=== PATIENT | male | born 1980 | race Caucasian/White ===

== ENCOUNTER 2018-03-31 04:53 | Emergency (ER) | payer OTHER ==
[2018-03-31] MEDS ORDERED: OLANZapine DISINTEGR 10 MG TAB PO ONE (05:19)
[2018-03-31] MEDS ORDERED: NS 1,000 ML IV ONE ×2 (05:19→07:59)
--- NOTE | 2018-03-31 05:39 | EDPHY ---
H & P Stated Complaint: altered at [employer], meth and mj use, erratic behavior Source: Patient, EMS Exam Limitations: Intoxication - Personal History Current Tetanus/Diphtheria Vaccine: Unsure Current Tetanus Diphtheria and Acellular Pertussis (TDAP): Unsure - Medical/Surgical History Hx Asthma: No Hx Chronic Respiratory Disease: No Hx Diabetes: No Hx Cardiac Disease: Yes Hx Renal Disease: No Hx Cirrhosis: No Hx Alcoholism: Yes Hx HIV/AIDS: No Hx Splenectomy or Spleen Trauma: No Other PMH: HTN, PTSD, Depression, adhd - Social History Smoking Status: Heavy smoker Time Seen by Provider: 03/31/18 05:13 HPI/ROS: HPI The patient presents with bizarre behavior, brought in by ambulance from a restaurant where he was acting strangely, tearing open sugar packets, and uncooperative with staff. The patient admits to methamphetamine use tonight. He says he 1st used about 12 hr ago and has been using it throughout the evening. He does not have any chest pain, abdominal pain, nausea, vomiting. He is feeling anxious.. REVIEW OF SYSTEMS 10 systems were reviewed and negative with the exception of the elements mentioned in the history of present illness. PMHx: PTSD, bipolar disorder per his report Soc Hx: Methamphetamine abuse, marijuana use PHYSICAL General Appearance: Alert, anxious, glancing around the room Eyes: Pupils equal and round no pallor or injection ENT, Mouth: Mucous membranes moist Respiratory: There are no retractions, lungs are clear to auscultation Cardiovascular: Tachycardic rate and regular rhythm Gastrointestinal: Abdomen is soft and non-tender, no masses, bowel sounds normal Neurological: A&O, moves all extremities Skin: Warm and dry, no rashes Musculoskeletal: Neck is supple non tender Extremities: symmetrical, full range of motion Psychiatric: Patient is oriented X 3, he is agitated, twitching (Riguzzi,Dinorah) Constitutional: Initial Vital Signs Heart Rate 121 H 03/31/18 04:56 Respiratory Rate 20 03/31/18 04:56 Blood Pressure 134/69 H 03/31/18 04:56 O2 Sat (%) 96 03/31/18 04:56 O2 Delivery Mode Room Air Allergies/Adverse Reactions: No Known Allergies Allergy (Unverified 03/31/18 04:56) Home Medications: Medication Instructions Recorded NK [No Known Home Meds] 03/31/18 Medical Decision Making Differential Diagnosis: This is a 37-year-old man who is brought in by ambulance with bizarre behavior. He apparently was at a restaurant acting strangely. He admits to methamphetamine use. Here he is tachycardic, oriented to self only, appears to be tweaking. Plan for IV fluids and Zyprexa. Patient received above treatments and required additional doses of Ativan for sedation because of his agitation. He was allowed to sleep, heart rate improved. (Dinorah Dinh) Other Provider: [address] Tejada pending improvement in the patient's mental status and decrease in the affects of the methamphetamines. 10:30 patient is awake alert. Ambulating unassisted to the bathroom. Medically clear for discharge. (David Jones) - Data Points Medications Given: Discontinued Medications Sodium Chloride (Ns) 1,000 mls @ 0 mls/hr IV EDNOW ONE; Wide Open PRN Reason: Protocol Stop: 03/31/18 05:20 Last Admin: 03/31/18 05:25 Dose: 1,000 mls Sodium Chloride (Ns) 1,000 mls @ 0 mls/hr IV EDNOW ONE; Wide Open PRN Reason: Protocol Stop: 03/31/18 08:00 Last Admin: 03/31/18 08:00 Dose: 1,000 mls Lorazepam (Ativan Injection) 1 mg IVP EDNOW ONE Stop: 03/31/18 05:49 Last Admin: 03/31/18 05:48 Dose: 1 mg Lorazepam (Ativan Injection) 1 mg IVP EDNOW ONE Stop: 03/31/18 06:02 Last Admin: 03/31/18 06:01 Dose: 1 mg Olanzapine (Zyprexa Zydis) 10 mg PO EDNOW ONE Stop: 03/31/18 05:20 Last Admin: 03/31/18 05:25 Dose: 10 mg Departure - Departure Disposition: Home, Routine, Self-Care Clinical Impression: Methamphetamine abuse, Tachycardia Altered mental status Qualifiers: Altered mental status type: unspecified Qualified Code(s): R41.82 - Altered mental status, unspecified Condition: Good Instructions: Methamphetamine (By mouth) Additional Instructions: Please avoid methamphetamine, it is causing bad problems for you. Referrals: [facility],. [Clinic] - As per Instructions
[2018-03-31] MEDS ORDERED: LORazepam 2 MG/ML INJ ONE (05:46)
[2018-03-31] MEDS ORDERED: LORazepam 2 MG/ML INJ IVP ONE ×2 (05:48→06:01)
[2018-03-31 10:37] VITALS: BP 95/60
== END 2018-03-31 10:49 | disposition home or self-care (01) ==
DX: R41.82 Altered mental status, unspecified (principal); F15.10 Other stimulant abuse, uncomplicated; R00.0 Tachycardia, unspecified
CPT/HCPCS: 96374; J2060

== ENCOUNTER 2018-04-19 04:45 | Emergency (ER) | payer MEDICAID ==
--- NOTE | 2018-04-19 05:17 | EDPHY ---
H & P Stated Complaint: SI, MANIC, PTSD, mildly combative. +ETOH - Personal History Current Tetanus/Diphtheria Vaccine: Unsure Current Tetanus Diphtheria and Acellular Pertussis (TDAP): Unsure - Medical/Surgical History Hx Asthma: No Hx Chronic Respiratory Disease: No Hx Diabetes: No Hx Cardiac Disease: Yes Hx Renal Disease: No Hx Cirrhosis: No Hx Alcoholism: Yes Hx HIV/AIDS: No Hx Splenectomy or Spleen Trauma: No Other PMH: HTN, PTSD, Depression, adhd - Social History Smoking Status: Heavy smoker Time Seen by Provider: 04/19/18 04:50 HPI/ROS: Chief Complaint: Altered, intoxicated, suicidal, PTSD HPI: 37-year-old male with a history of PTSD the being brought in by EMS and police for increasing agitation, suicidal thoughts with no specific plan. Patient admits to drinking alcohol and using marijuana. Denies any other drug use. Patient states that he is feeling increasingly hopeless and depressed. He does not wish to live any longer. He is tearful and lashing out. He has been very volatile per EMS. At 1 point he was striking himself. He has not required physical restraint. Patient was increasingly agitated after contact with EMS and police. Patient was placed on M1 hold by police. ROS: 10 systems were reviewed and were negative except those elements noted in the HPI. PMH: PTSD Social History: Positive smoking, positive alcohol, positive marijuana Family History: non-contributory Physical Exam: Gen: Awake, Alert, No Distress, alternating tearful and pressured speech HEENT: Nose: no rhinorrhea Eyes: PERRLA, EOMI Mouth: Moist mucosa Neck: Supple, no JVD Chest: nontender, lungs clear to auscultation Heart: S1, S2 normal, no murmur Abd: Soft, non-tender, no guarding Back: no CVA tenderness, no midline tenderness Ext: no edema, non-tender, small abrasion to his left 5th MCP joint, no bony tenderness or deformity, no swelling Skin: no rash Neuro: CN II-XII intact, Sensation grossly intact, Strength 5/5 in bilateral upper and lower extremities (David Jones) Constitutional: Initial Vital Signs Temperature (C) 36.7 C 04/19/18 04:58 Heart Rate 103 H 04/19/18 04:58 Respiratory Rate 20 04/19/18 04:58 Blood Pressure 125/78 H 04/19/18 04:58 O2 Sat (%) 98 04/19/18 04:58 O2 Delivery Mode Room Air Allergies/Adverse Reactions: No Known Allergies Allergy (Unverified 04/19/18 04:58) Home Medications: Medication Instructions Recorded NK [No Known Home Meds] 03/31/18 Medical Decision Making ED Course/Re-evaluation: 7:00 a.m.-I assumed care of this patient at shift change. Presents with alcohol intoxication and suicidal ideation. On an M1 hold. Given Zyprexa and Versed during the night nurse. Awaiting mental health evaluation this morning. (Kenyetta Alvares) I took over care of this patient at 3:00 p.m.. This patient is on an M1 hold for suicidal ideation. The patient was also hostile towards staff and combative secondary to alcohol intoxication. He had been given intramuscular Haldol as well as Versed earlier in his emergency department course. He is now appropriate for evaluation. 10:45 p.m., the patient's remaining emergency department course under my care has been uneventful. Behavioral Health will re-evaluate the patient in the morning. Care turned over to Dr. Cruz Jones at this time. (Violeta Seals) 37-year-old male with PTSD, alcohol intoxication agitation. Patient stating that he is not wishing to live. He is on M1 hold. Will send medical screening labs and plan for mental health evaluation when appropriate. Patient's alcohol level noted to 230. Also positive for marijuana was expected in he admitted to. Remainder of his laboratory evaluations are unremarkable. Patient is now sleeping after receiving Zyprexa and midazolam. He will need a sober evaluation. Patient signed out to Dr. Alvares pending mental health evaluation. 2300 care assumed by me from Dr. Seals. Patient is pending mental health re-evaluation in the morning. 0700 patient signed out to Dr. Killian pending mental health re-evaluation. There been no issues during my care this patient overnight. (David Jones) Other Provider: Care assumed at 6:45 a.m. With plan for mental health evaluation today. 730: Patient mental health evaluation is complete, discussed with [facility] business operations coordinator Vandana, patient is not suicidal or homicidal or gravely disabled and does not appear to meet mental health criteria for 72 hr hold at this time. Patient personally examine. He has lateral eye deviation at rest with both the left and the right eye which he says is baseline. He denies suicidal ideation or homicidal ideation and does not appear to be gravely disabled. His speech is fluent and logical at this time and he is mildly tremulous. Oral Ativan 1 mg for probable alcohol withdrawal. Mental health hold his terminated by myself and the patient is discharged. He is offered detox but declined. (Rene Killian) - Data Points Laboratory Results: Laboratory Results 04/19/18 05:15 04/19/18 05:15 Medications Given: Discontinued Medications Diazepam (Valium) 5 mg PO EDNOW ONE Stop: 04/19/18 17:28 Last Admin: 04/19/18 17:31 Dose: 5 mg Lorazepam (Ativan) 1 mg PO EDNOW ONE Stop: 04/20/18 07:31 Last Admin: 04/20/18 07:34 Dose: 1 mg Midazolam HCl (Versed) 2 mg IM EDNOW ONE Stop: 04/19/18 05:21 Last Admin: 04/19/18 05:00 Dose: 2 mg Olanzapine (Zyprexa Injection) 5 mg IM EDNOW ONE Stop: 04/19/18 05:21 Last Admin: 04/19/18 05:00 Dose: 5 mg Departure - Departure Disposition: Home, Routine, Self-Care Clinical Impression: Suicidal ideation Alcohol intoxication Qualifiers: Complication of substance-induced condition: uncomplicated Qualified Code(s): F10.920 - Alcohol use, unspecified with intoxication, uncomplicated Condition: Good Instructions: Alcohol Intoxication (ED) Referrals: [facility],. [Clinic] - As per Instructions [facility],. [Clinic] - As per Instructions
[2018-04-19] MEDS ORDERED: MIDAZOLAM 10 MG/2 ML VIAL IM ONE (05:20)
[2018-04-19] MEDS ORDERED: OLANZapine 10 MG/2 ML VIAL IM ONE (05:20)
[2018-04-19 05:41] LABS: PLATELET COUNT 250 10^3/uL (150-400)
[2018-04-19] MEDS ORDERED: DIAZEPAM 5 MG TAB PO ONE (17:27)
[2018-04-20] MEDS ORDERED: LORazepam 1 MG TAB PO ONE (07:30)
[2018-04-20 07:41] VITALS: BP 120/80
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
--- NOTE | 2018-04-20 07:52 | ASMTTCLDSP ---
TLC Discharge Disposition Disposition: Answers: Discharge If Answers: Yes DISCHARGED: Patient/family given suicide hotline info & [facility] brochure? Disposition Notes: Notes: In consultation with [facility] ED physician, Rene Killian MD it was concurred that pt does not appear to meet 27-65 criteria requiring psychiatric hospitalization as pt does not appear to be an imminent risk of harm to self/others/gravely disabled due to a mental illness condition. Dr Rene Killian vacated M1 hold at 7:32 hrs. Discharge Concerns/Recommendations: Notes: Pt was offered voluntary mental health admission yet pt declined. Pt was also offered option of alcohol detox at the [facility] but declined. Pt stated commitment or ability to keep self safe, denied thoughts of self harm or harm to others. Pt expressed a desire to f/u with housing and addiction social worker through [facility] where he currently has a bed and [facility]. Pt was provided with resources for Crisis Center. Pt was given local hotline information and [facility] brochure After an Attempt and encouraged to follow up with [facility]. Psychiatrist vacating M1 Hold: Dr Rene Killian, ED Physician Date and time M1 hold 04/20/2018 07:32 AM vacated (time format is hh:mm): Type of Hold: Answers: M1/72-hour Hold Hold initiated by: Answers: Police Date Signed: 04/20/2018 07:51 AM Electronically Signed By:Vandana Sánchez
--- NOTE | 2018-04-20 07:57 | ASMTLCPROG ---
Notes Note: Notes: TLC met with pt. for re-evaluation at 07:00. Pt continues to deny any thoughts of self harm. Reported his behavior initiating admission was due to intoxication. TLC consulted with Dr. Rene Killian, ED Physician. Pt was seen by Dr Killian and M1 hold was vacated. Pt was offered voluntary mental health admission yet pt declined. Pt was also offered option of alcohol detox at the [facility] but declined. Pt stated commitment or ability to keep self safe, denied thoughts of self harm or harm to others. Pt expressed a desire to f/u with housing and social services manager through [facility] where he currently has a bed and [facility]. Pt was provided with resources for Crisis Center. Date Signed: 04/20/2018 07:56 AM Electronically Signed By:Vandana Sánchez
== END 2018-04-20 07:44 | disposition home or self-care (01) ==
LOC: EDUNIT#
DX: R45.851 Suicidal ideations (principal); F32.9 Major depressive disorder, single episode, unspecified; F43.10 Post-traumatic stress disorder, unspecified; F10.920 Alcohol use, unspecified with intoxication, uncomplicated; Y90.8 Blood alcohol level of 240 mg/100 ml or more; I10 Essential (primary) hypertension
CPT/HCPCS: 80305; G0480

== ENCOUNTER 2018-04-20 23:40 | Emergency (ER) | payer MEDICAID | END 2018-04-21 08:02 | disposition home or self-care (01) ==